=== PATIENT | male | born 1980 | race Caucasian/White ===

== ENCOUNTER → 2016-09-12 | Outpatient (CLI) | payer BC ==
--- NOTE | 2016-09-12 08:51 | KCIC ---
Indication: Pre-MRI screening. Time of exam 8:41 AM No radiopaque orbital foreign body is detected. Electronically signed by: Ritesh Rod MD (09/12/2016 8:48 AM)
--- NOTE | 2016-09-12 09:26 | KCIC ---
MRI left knee without contrast dated 09/12/2016. No comparison available. Clinical indication: Left knee pain for several months. TECHNIQUE: Routine multiplanar multisequence MR imaging performed. FINDINGS: Bone marrow signal is homogeneous. No marrow edema. Minimal tricompartmental hypertrophic changes. Mild thinning and surface irregularity of the articular cartilage throughout. There is focal cartilage thinning/fissuring at the lateral aspect of the medial femoral condyle that extends 50-60 percent thickness. No full-thickness osteochondral defect. No significant joint effusion. Small popliteal cyst. No intra-articular loose body. Anterior cruciate and posterior cruciate ligaments are intact. Medial and lateral collateral complexes are intact. Iliotibial band, popliteus tendon and pes anserine complex within normal limits. Quadriceps and patellar tendon are intact. No abnormality of the medial and lateral retinaculum. There is mild linear increased signal within the posterior horn medial meniscus that does not appear to reach an articular surface. Menisci are otherwise normal in morphology and signal. No parameniscal cyst. Small focus of metallic susceptibility artifact at the lateral knee subcutaneous tissues, indeterminate. IMPRESSION: 1. No evidence of internal derangement. 2. Mild tricompartmental degenerative arthrosis and chondromalacia. No full thickness osteochondral defect. 3. Small popliteal cyst. 4. Small focus of metallic susceptibility artifact at the lateral knee subcutaneous tissues, nonspecific but possibly related to a small retained metallic foreign body. Electronically signed by: Davy Reed MD (09/12/2016 9:23 AM)
== END | disposition home or self-care (01) ==
LOC: KCIC MRI 08:20
PROVIDERS: ATTEND Family Medicine
DX: M25.561 Pain in right knee (principal); M25.562 Pain in left knee
CPT/HCPCS: 70030; 73721